=== PATIENT | male | born 1975 | race Caucasian/White ===

== ENCOUNTER 2019-06-13 21:07 | Observation (INO) | payer BC, MEDICAID, OTHER ==
[2019-06-13 21:52] LABS: CHLORIDE,CL 103 mmol/L (98-107); SODIUM,NA 140 mmol/L (136-145)
[2019-06-13] MEDS ORDERED: Diazepam 5 MG Tab PO ONE (21:53)
[2019-06-13] MEDS ORDERED: Ketorolac 30 MG/ML SDV IVPUSH ONE (21:54)
[2019-06-13] MEDS ORDERED: Morphine 2 MG/ML Syringe IVPUSH ONE (21:54)
[2019-06-13] MEDS ORDERED: Ondansetron 4 MG/2 ML SDV IVPUSH ONE (21:54)
--- NOTE | 2019-06-13 21:59 | EDM.PDOC ---
ED HPI GENERAL MEDICAL PROBLEM - General Chief Complaint: Back Pain or Injury Stated Complaint: flank, abdominal pain Time Seen by Provider: 06/13/19 21:43 Source of Information: Reports: Patient History Limitations: Reports: No Limitations - History of Present Illness INITIAL COMMENTS - FREE TEXT/NARRATIVE: Patient comes to ER with acute back pain/muscle spasms that started yesterday. Worsening over the last 24 hours. Was performing "heavy wrenching" on tractor yesterday and feels that may have triggered this pain. Has had pain in same area (left side/under scapula and mid back, radiating around to front of upper abdomen) in past but it was located a little higher than this episode. Has history of chronic back pain/intermittent leg numbness that has been worked up in past by other providers. No new numbness/arm weakness. - Related Data Allergies Allergy/AdvReac Type Severity Reaction Status Date / Time No Known Allergies Allergy Verified 06/13/19 21:08 Home Meds: Home Meds Albuterol [Ventolin HFA] 0 puff INH Q4H PRN 06/13/19 [History] Past Medical History Respiratory History: Reports: COPD Musculoskeletal History: Reports: Back Pain, Chronic Neurological History: Reports: Neuropathy, Peripheral Social & Family History - Family History Family Medical History: Noncontributory - Tobacco Use Smoking Status *Q: Current Every Day Smoker Years of Tobacco use: 28 Packs/Tins Daily: 0.5 Second Hand Smoke Exposure: Yes - Caffeine Use Caffeine Use: Reports: Coffee, Soda Other Caffeine Use: Mt Dew Caffeine Use Comment: 2L day - Alcohol Use Days Per Week of Alcohol Use: 0 - Recreational Drug Use Recreational Drug Use: No ED ROS GENERAL - Review of Systems Review Of Systems: See Below Constitutional: Reports: No Symptoms HEENT: Reports: No Symptoms Respiratory: Reports: No Symptoms. Denies: Pleuritic Chest Pain Cardiovascular: Denies: Chest Pain, Dyspnea on Exertion, Lightheadedness, Palpitations GI/Abdominal: Reports: Other (back pain does wrap around to left upper abdomen) . Denies: Constipation, Diarrhea, Nausea, Vomiting : Reports: No Symptoms Musculoskeletal: Reports: Back Pain. Denies: Arm Pain, Leg Pain Skin: Reports: No Symptoms Neurological: Reports: No Symptoms (no acute changes) Psychiatric: Reports: No Symptoms Hematologic/Lymphatic: Reports: No Symptoms ED EXAM, GENERAL - Physical Exam Exam: See Below Exam Limited By: Physical Impairment (severe back spasms with movement/ palpation of left mid back.) General Appearance: Alert, WD/WN, Severe Distress (during spasms) Eye Exam: Bilateral Eye: EOMI, PERRL Ears: Hearing Grossly Normal Nose: No: Nasal Deformity, Nasal Swelling, Nasal Drainage Throat/Mouth: Normal Lips, Normal Voice, No Airway Compromise Head: Atraumatic, Normocephalic Neck: Supple, Non-Tender, Full Range of Motion Respiratory/Chest: No Respiratory Distress, Lungs Clear, Normal Breath Sounds, No Accessory Muscle Use, Other (posterior chest under scapula tender with palpation, tender along serratus muscle) Cardiovascular: No Edema, No Murmur, Tachycardia GI/Abdominal: Normal Bowel Sounds, Soft, Non-Tender, No Distention (Male) Exam: Deferred Rectal (Males) Exam: Deferred Back Exam: Paraspinal Tenderness (left back under scapula) Extremities: Normal Capillary Refill, Other (no gross assymetry noted. ) Neurological: Alert, Oriented, Normal Cognition, Other (appears to have equal strength bilaterally upper/lower limbs) Psychiatric: Anxious Skin Exam: Warm, Dry, Intact, Normal Color Course - Vital Signs Last Recorded V/S: Last Vital Signs Temp 36.8 C 06/13/19 21:11 Pulse 107 H 06/13/19 21:11 Resp 20 06/13/19 21:11 BP 131/87 06/13/19 21:11 Pulse Ox 96 06/13/19 21:11 - Orders/Labs/Meds Orders: Active Orders 24 hr Category Date Time Status MAGNESIUM [CHEM] Stat Lab 06/13/19 21:30 Received Ketorolac [Toradol] Med 06/13/19 21:54 Once 30 mg IVPUSH ONETIME ONE Morphine Med 06/13/19 21:54 Once 2 mg IVPUSH ONETIME ONE Ondansetron [Zofran] Med 06/13/19 21:54 Once 4 mg IVPUSH ONETIME ONE Sodium Chloride 0.9% [Saline Flush] Med 06/13/19 21:53 Ordered 10 ml FLUSH ASDIRECTED PRN Saline Lock Insert [OM.PC] Routine Oth 06/13/19 21:53 Ordered Medication Orders Sodium Chloride (Saline Flush) 10 ml FLUSH ASDIRECTED PRN PRN Reason: Keep Vein Open Labs: Laboratory Tests 06/13/19 06/13/19 06/13/19 Range/Units 21:30 21:30 21:30 WBC 10.0 (4.0-10.2) K/uL RBC 5.21 (4.33-5.41) M/uL Hgb 15.7 (13.1-16.8) g/dL Hct 45.6 (39.0-49.0) % MCV 87.5 (84.0-98.0) fL MCH 30.1 (28.2-33.3) pg MCHC 34.4 (31.7-36.0) g/dL RDW 13.0 (11.2-14.1) % Plt Count 279 (150-350) K/uL Neut % (Auto) 51.2 (45.0-80.0) % Lymph % (Auto) 36.2 (10.0-50.0) % [place] % (Auto) 8.3 (2.0-14.0) % Eos % (Auto) 3.9 (0.0-5.0) % Baso % (Auto) 0.4 (0.0-2.0) % Neut # (Auto) 5.14 (1.40-7.00) K/uL Lymph # (Auto) 3.63 H (0.50-3.50) K/uL [place] # (Auto) 0.83 (0.00-1.00) K/uL Eos # (Auto) 0.39 (0.00-0.50) K/uL Baso # (Auto) 0.04 (0.00-0.20) K/uL Sodium 140 (136-145) mmol/L Potassium 4.1 (3.5-5.1) mmol/L Chloride 103 (98-107) mmol/L Carbon Dioxide 27.2 (21.0-32.0) mmol/L BUN 15 (7-18) mg/dL Creatinine 0.93 (0.51-1.17) mg/dL Est Cr Clr Drug Dosing 102.48 mL/min Estimated GFR (MDRD) > 60 mL/min Glucose 127 H (74-106) mg/dL Calcium 9.2 (8.5-10.1) mg/dL Total Bilirubin 0.6 (0.2-1.0) mg/dL AST 24 (15-37) U/L ALT 33 (12-78) U/L Alkaline Phosphatase 81 (46-116) IU/L Total Protein 8.0 (6.4-8.2) g/dL Albumin 4.3 (3.4-5.0) g/dL Specimen Type Urinvoid Urine Color Yellow Urine Appearance Clear Urine pH 5.5 (5.0-9.0) Ur Specific [place] >= 1.030 (1.005-1.030) Urine Protein Negative (NEGATIVE) mg/dL Urine Glucose (UA) Negative (NEGATIVE) mg/dL Urine Ketones Trace H (NEGATIVE) mg/dL Urine Occult Blood Negative (NEGATIVE) Urine Nitrite Negative (NEGATIVE) Urine Bilirubin Negative (NEGATIVE) Urine Urobilinogen 0.2 (0.2-1.0) E.U./dL Ur Leukocyte Esterase Negative (NEGATIVE) Urine RBC Not seen /HPF Urine WBC 0-5 /HPF Urine Bacteria Rare (NONE TO FEW) /HPF Urine Mucus Rare H (NEGATIVE) /LPF Meds: Medications Generic Name Dose Route Start Last Admin Trade Name Freq PRN Reason Stop Dose Admin Sodium Chloride 10 ml 06/13/19 21:53 Saline Flush FLUSH ASDIRECTED PRN Keep Vein Open Discontinued Medications Generic Name Dose Route Start Last Admin Trade Name Freq PRN Reason Stop Dose Admin Diazepam 5 mg 06/13/19 21:53 Valium. PO 06/13/19 21:54 ONETIME ONE - Re-Assessments/Exams Free Text/Narrative Re-Assessment/Exam: 06/13/19 22:02 CBC/Chem/Mg/UA requested. Overall unremarkable labs. Does not appear to be consistent with kidney stone at this time. Does appear to be musculo/skeletal in nature given reproducibility with light palpation and spasm-like nature. Patient does have history of long standing back issues. Unable to obtain plain films of back at this time due to patient's symptoms. Plan is to admit observation for pain and spasm control and assistance with ADLs. Departure - Departure Time of Disposition: 22:05 Disposition: Refer to Observation Condition: Good Clinical Impression: Spasm of thoracic back muscle - Discharge Information *PRESCRIPTION DRUG MONITORING PROGRAM REVIEWED*: Not Applicable *COPY OF PRESCRIPTION DRUG MONITORING REPORT IN PATIENT BHARGAV: Not Applicable Sepsis Event Note - Evaluation Sepsis Screening Result: No Definite Risk - Focused Exam Vital Signs: Vital Signs Temp Pulse Resp BP Pulse Ox 06/13/19 21:11 36.8 C 107 H 20 131/87 96 Date Exam was Performed: 06/13/19 Time Exam was Performed: 21:54 - Problem List & Annotations (1) Spasm of thoracic back muscle SNOMED Code(s): 329801692353395 Code(s): M62.830 - MUSCLE SPASM OF BACK Status: Acute Priority: High Current Visit: Yes Onset Date: 06/12/19 Annotation/Comment:: Acute spasm of back/lower thoracic area with radiation around serratus anterior muscle and left upper abdomen. Will treat pain and spasms. Assistance with ADLs as needed. Consider MRI study when it is available on Saturday depending on patient' s clinic course over the next 24-48 hours. (2) Chronic back pain SNOMED Code(s): 923394796 Code(s): M54.9 - DORSALGIA, UNSPECIFIED; G89.29 - OTHER CHRONIC PAIN Status : Chronic Priority: Low Current Visit: No Annotation/Comment:: stable per patient Qualifiers: Back pain location: low back pain Back pain laterality: unspecified Sciatica presence: unspecified whether sciatica present Qualified Code(s): M54.5 - Low back pain; G89.29 - Other chronic pain (3) COPD (chronic obstructive pulmonary disease) SNOMED Code(s): 30618745 Code(s): J44.9 - CHRONIC OBSTRUCTIVE PULMONARY DISEASE, UNSPECIFIED Status : Chronic Priority: Low Current Visit: No Annotation/Comment:: mild asthma per patient with PRN Albuterol inhaler. Is smoker. Qualifiers: COPD type: unspecified COPD Qualified Code(s): J44.9 - Chronic obstructive pulmonary disease, unspecified - Problem List Review Problem List Initiated/Reviewed/Updated: Yes - My Orders Last 24 Hours: My Active Orders 06/13/19 21:30 MAGNESIUM [CHEM] Stat 06/13/19 21:53 Sodium Chloride 0.9% [Saline Flush] 10 ml FLUSH ASDIRECTED PRN Saline Lock Insert [OM.PC] Routine 06/13/19 21:54 Ketorolac [Toradol] 30 mg IVPUSH ONETIME ONE Morphine 2 mg IVPUSH ONETIME ONE Ondansetron [Zofran] 4 mg IVPUSH ONETIME ONE - Assessment/Plan Admission H&P: Please use this note as an admission H&P Last 24 Hours: My Active Orders 06/13/19 21:30 MAGNESIUM [CHEM] Stat 06/13/19 21:53 Sodium Chloride 0.9% [Saline Flush] 10 ml FLUSH ASDIRECTED PRN Saline Lock Insert [OM.PC] Routine 06/13/19 21:54 Ketorolac [Toradol] 30 mg IVPUSH ONETIME ONE Morphine 2 mg IVPUSH ONETIME ONE Ondansetron [Zofran] 4 mg IVPUSH ONETIME ONE Assessment:: as above Plan: as above
[2019-06-13] MEDS ORDERED: Ondansetron 4 MG/2 ML SDV IVPUSH PRN (22:10)
[2019-06-13] MEDS ORDERED: Morphine 2 MG/ML Syringe IVPUSH PRN (22:10)
[2019-06-13] MEDS ORDERED: Albuterol 0.083% 2.5 MG/3 ML Neb Soln NEB PRN (22:10)
[2019-06-13] MEDS ORDERED: methylPREDNISolone Sodium Succinate 125 MG/2 ML SDV IVPUSH ONE (22:15)
[2019-06-13] MEDS: Sodium Chloride 0.9% 10 ML Syringe FLUSH PRN ×2 (22:25→23:03)
[2019-06-13] MEDS: Sodium Chloride 0.9% 1,000 ML IV SCH (23:02)
[2019-06-14] MEDS ORDERED: Diazepam 5 MG Tab PO ONE (08:00)
[2019-06-14] MEDS: Sodium Chloride 0.9% 1,000 ML IV SCH (08:05)
[2019-06-14] MEDS: Ketorolac 30 MG/ML SDV IVPUSH PRN (08:50)
[2019-06-14] MEDS: Nicotine 21 MG/24 Hr Patch TRDERM SCH (10:02)
--- NOTE | 2019-06-14 11:11 | PCM.PN ---
- General Info Date of Service: 06/14/19 Admission Dx/Problem (Free Text): Acute left sided back pain/spasms that started while patient was working on tractor at work. Subjective Update: Pain severity/spasms still present but overall severity has improved on current medical therapy. Still needs assistance with getting up and out of bed. Unable to perform ADLs independently. Functional Status: Reports: Tolerating Diet, Ambulating (with assistance). Denies: New Symptoms Pain Score: 3 - Review of Systems General: Reports: No Symptoms HEENT: Reports: No Symptoms Pulmonary: Denies: Shortness of Breath, Pleuritic Chest Pain, Cough, Sputum Cardiovascular: Reports: Chest Pain (left sided, wraps from back around to front.). Denies: Palpitations, Dyspnea on Exertion, Orthopnea, Lightheadedness Gastrointestinal: Reports: Abdominal Pain (Pain extends to upper left side abdomen when he experiences spasms). Denies: Constipation, Diarrhea, Nausea, Vomiting Genitourinary: Reports: No Symptoms Musculoskeletal: Reports: Back Pain. Denies: Neck Pain, Arm Pain, Leg Pain Skin: Reports: No Symptoms Neurological: Denies: Confusion, Dizziness, Numbness, Paresthesia, Weakness Psychiatric: Reports: No Symptoms - Patient Data Vitals - Most Recent: Last Vital Signs Temp 36.9 C 06/14/19 10:52 Pulse 98 06/14/19 10:52 Resp 18 06/14/19 10:52 BP 113/64 06/14/19 10:52 Pulse Ox 93 L 06/14/19 10:52 Weight - Most Recent: 77.111 kg I&O - Last 24 Hours: Intake & Output 06/13/19 06/14/19 06/14/19 22:59 06:59 14:59 Intake Total 850 Balance 850 Lab Results Last 24 Hours: Laboratory Results - last 24 hr 06/13/19 06/13/19 06/13/19 Range/Units 21:30 21:30 21:30 WBC 10.0 (4.0-10.2) K/uL RBC 5.21 (4.33-5.41) M/uL Hgb 15.7 (13.1-16.8) g/dL Hct 45.6 (39.0-49.0) % MCV 87.5 (84.0-98.0) fL MCH 30.1 (28.2-33.3) pg MCHC 34.4 (31.7-36.0) g/dL RDW 13.0 (11.2-14.1) % Plt Count 279 (150-350) K/uL Neut % (Auto) 51.2 (45.0-80.0) % Lymph % (Auto) 36.2 (10.0-50.0) % [place] % (Auto) 8.3 (2.0-14.0) % Eos % (Auto) 3.9 (0.0-5.0) % Baso % (Auto) 0.4 (0.0-2.0) % Neut # (Auto) 5.14 (1.40-7.00) K/uL Lymph # (Auto) 3.63 H (0.50-3.50) K/uL [place] # (Auto) 0.83 (0.00-1.00) K/uL Eos # (Auto) 0.39 (0.00-0.50) K/uL Baso # (Auto) 0.04 (0.00-0.20) K/uL Sodium 140 (136-145) mmol/L Potassium 4.1 (3.5-5.1) mmol/L Chloride 103 (98-107) mmol/L Carbon Dioxide 27.2 (21.0-32.0) mmol/L BUN 15 (7-18) mg/dL Creatinine 0.93 (0.51-1.17) mg/dL Est Cr Clr Drug Dosing 102.48 mL/min Estimated GFR (MDRD) > 60 mL/min Glucose 127 H (74-106) mg/dL Calcium 9.2 (8.5-10.1) mg/dL Magnesium (1.8-2.4) mg/dL Total Bilirubin 0.6 (0.2-1.0) mg/dL AST 24 (15-37) U/L ALT 33 (12-78) U/L Alkaline Phosphatase 81 (46-116) IU/L Total Protein 8.0 (6.4-8.2) g/dL Albumin 4.3 (3.4-5.0) g/dL Specimen Type Urinvoid Urine Color Yellow Urine Appearance Clear Urine pH 5.5 (5.0-9.0) Ur Specific [place] >= 1.030 (1.005-1.030) Urine Protein Negative (NEGATIVE) mg/dL Urine Glucose (UA) Negative (NEGATIVE) mg/dL Urine Ketones Trace H (NEGATIVE) mg/dL Urine Occult Blood Negative (NEGATIVE) Urine Nitrite Negative (NEGATIVE) Urine Bilirubin Negative (NEGATIVE) Urine Urobilinogen 0.2 (0.2-1.0) E.U./dL Ur Leukocyte Esterase Negative (NEGATIVE) Urine RBC Not seen /HPF Urine WBC 0-5 /HPF Urine Bacteria Rare (NONE TO FEW) /HPF Urine Mucus Rare H (NEGATIVE) /LPF 06/13/19 Range/Units 21:30 WBC (4.0-10.2) K/uL RBC (4.33-5.41) M/uL Hgb (13.1-16.8) g/dL Hct (39.0-49.0) % MCV (84.0-98.0) fL MCH (28.2-33.3) pg MCHC (31.7-36.0) g/dL RDW (11.2-14.1) % Plt Count (150-350) K/uL Neut % (Auto) (45.0-80.0) % Lymph % (Auto) (10.0-50.0) % [place] % (Auto) (2.0-14.0) % Eos % (Auto) (0.0-5.0) % Baso % (Auto) (0.0-2.0) % Neut # (Auto) (1.40-7.00) K/uL Lymph # (Auto) (0.50-3.50) K/uL [place] # (Auto) (0.00-1.00) K/uL Eos # (Auto) (0.00-0.50) K/uL Baso # (Auto) (0.00-0.20) K/uL Sodium (136-145) mmol/L Potassium (3.5-5.1) mmol/L Chloride (98-107) mmol/L Carbon Dioxide (21.0-32.0) mmol/L BUN (7-18) mg/dL Creatinine (0.51-1.17) mg/dL Est Cr Clr Drug Dosing mL/min Estimated GFR (MDRD) mL/min Glucose (74-106) mg/dL Calcium (8.5-10.1) mg/dL Magnesium 1.9 (1.8-2.4) mg/dL Total Bilirubin (0.2-1.0) mg/dL AST (15-37) U/L ALT (12-78) U/L Alkaline Phosphatase (46-116) IU/L Total Protein (6.4-8.2) g/dL Albumin (3.4-5.0) g/dL Specimen Type Urine Color Urine Appearance Urine pH (5.0-9.0) Ur Specific [place] (1.005-1.030) Urine Protein (NEGATIVE) mg/dL Urine Glucose (UA) (NEGATIVE) mg/dL Urine Ketones (NEGATIVE) mg/dL Urine Occult Blood (NEGATIVE) Urine Nitrite (NEGATIVE) Urine Bilirubin (NEGATIVE) Urine Urobilinogen (0.2-1.0) E.U./dL Ur Leukocyte Esterase (NEGATIVE) Urine RBC /HPF Urine WBC /HPF Urine Bacteria (NONE TO FEW) /HPF Urine Mucus (NEGATIVE) /LPF Med Orders - Current: Current Medications Acetaminophen (Tylenol Extra Strength) 1,000 mg PO Q6H PRN PRN Reason: Pain Albuterol (Proventil Neb Soln) 2.5 mg NEB Q6HRRT PRN PRN Reason: Shortness Of Breath/wheezing Last Admin: 06/14/19 10:46 Dose: 2.5 mg Sodium Chloride (Normal Saline) 1,000 mls @ 125 mls/hr IV ASDIRECTED [facility] Last Admin: 06/14/19 08:05 Dose: 125 mls/hr Ketorolac Tromethamine (Toradol) 30 mg IVPUSH Q6H PRN PRN Reason: Pain (moderate 4-6) Last Admin: 06/14/19 08:50 Dose: 30 mg Lidocaine (Aspercreme 4%) 1 each TOP DAILY [facility] Morphine Sulfate (Morphine) 2 mg IVPUSH Q1H PRN PRN Reason: Pain (severe 7-10) Nicotine (Habitrol) 21 mg TRDERM DAILY [facility] Last Admin: 06/14/19 10:02 Dose: 21 mg Ondansetron HCl (Zofran) 4 mg IVPUSH Q6H PRN PRN Reason: Nausea/Vomiting Sodium Chloride (Saline Flush) 10 ml FLUSH ASDIRECTED PRN PRN Reason: Keep Vein Open Last Admin: 06/13/19 23:03 Dose: 10 ml Discontinued Medications Diazepam (Valium.) 5 mg PO ONETIME ONE Stop: 06/13/19 21:54 Last Admin: 06/13/19 22:00 Dose: 5 mg Diazepam (Valium.) 5 mg PO ONETIME ONE Stop: 06/14/19 08:01 Last Admin: 06/14/19 08:05 Dose: 5 mg Magnesium Sulfate/Dextrose 1 (gm/ Premix) 100 mls @ 100 mls/hr IV ONETIME ONE Stop: 06/13/19 23:15 Last Admin: 06/13/19 23:02 Dose: 100 mls/hr Ketorolac Tromethamine (Toradol) 30 mg IVPUSH ONETIME ONE Stop: 06/13/19 21:55 Last Admin: 06/13/19 22:12 Dose: 30 mg Methylprednisolone Sodium Succinate (Solu-Medrol) 125 mg IVPUSH ONETIME ONE Stop: 06/13/19 22:16 Last Admin: 06/13/19 23:02 Dose: 125 mg Morphine Sulfate (Morphine) 2 mg IVPUSH ONETIME ONE Stop: 06/13/19 21:55 Last Admin: 06/13/19 22:08 Dose: 2 mg Ondansetron HCl (Zofran) 4 mg IVPUSH ONETIME ONE Stop: 06/13/19 21:55 Last Admin: 06/13/19 22:26 Dose: 4 mg - Exam Quality Assessment: DVT Prophylaxis General: Alert, Oriented, Cooperative, Moderate Distress (when spasms triggered) HEENT: Pupils Equal, Pupils Reactive, EOMI, Mucous Membr. Moist/[place] Neck: Supple Lungs: Clear to Auscultation, Normal Respiratory Effort Cardiovascular: Regular Rate, Regular Rhythm GI/Abdominal Exam: Normal Bowel Sounds, Soft, Non-Tender, No Distention (Male) Exam: Deferred Back Exam: Other (very tender with even lightest touch mid left back/serratus muscle distribution/around side and left lower anterior chest. Reproduces pain complaint. No spinal tenderness with palpation) Extremities: Normal Capillary Refill, Limited Range of Motion (left arm/ shoulder as it exacerbates pain complaint) Peripheral Pulses: 2+: Radial (L), Radial (R) Skin: Warm, Dry. No: Rash Neurological: No New Focal Deficit Psy/Mental Status: Alert, Normal Affect, Normal Mood Sepsis Event Note - Evaluation Sepsis Screening Result: No Definite Risk - Focused Exam Vital Signs: Vital Signs Temp Temp Pulse Resp BP Pulse Ox 06/14/19 10:52 36.9 C 98 18 113/64 93 L 06/14/19 08:00 36.7 C 88 14 116/66 98 Date Exam was Performed: 06/14/19 Time Exam was Performed: 11:05 - Problem List & Annotations (1) Spasm of thoracic back muscle SNOMED Code(s): 416360597824416 Code(s): M62.830 - MUSCLE SPASM OF BACK Status: Acute Priority: High Current Visit: Yes Onset Date: 06/12/19 Annotation/Comment:: Acute spasm of back/lower thoracic area with radiation around serratus anterior muscle and left upper abdomen. 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 Will treat pain and spasms. Assistance with ADLs as needed. Consider MRI study when it is available on Saturday depending on patient's clinic course over the next 24-48 hours. (2) Chronic back pain SNOMED Code(s): 213424789 Code(s): M54.9 - DORSALGIA, UNSPECIFIED; G89.29 - OTHER CHRONIC PAIN Status : Chronic Priority: Low Current Visit: No Qualifiers: Back pain location: low back pain Back pain laterality: unspecified Sciatica presence: unspecified whether sciatica present Qualified Code(s): M54.5 - Low back pain; G89.29 - Other chronic pain Annotation/Comment:: stable per patient (3) COPD (chronic obstructive pulmonary disease) SNOMED Code(s): 93610239 Code(s): J44.9 - CHRONIC OBSTRUCTIVE PULMONARY DISEASE, UNSPECIFIED Status : Chronic Priority: Low Current Visit: No Qualifiers: COPD type: unspecified COPD Qualified Code(s): J44.9 - Chronic obstructive pulmonary disease, unspecified Annotation/Comment:: mild asthma per patient with PRN Albuterol inhaler. Is smoker. - Problem List Review Problem List Initiated/Reviewed/Updated: Yes - My Orders Last 24 Hours: My Active Orders 06/13/19 21:53 Sodium Chloride 0.9% [Saline Flush] 10 ml FLUSH ASDIRECTED PRN Saline Lock Insert [OM.PC] Routine 06/13/19 22:10 May Shower [RC] ASDIRECTED Up With Assistance [RC] ASDIRECTED Albuterol [Proventil Neb Soln] 2.5 mg NEB Q6HRRT PRN Ketorolac [Toradol] 30 mg IVPUSH Q6H PRN Morphine 2 mg IVPUSH Q1H PRN Ondansetron [Zofran] 4 mg IVPUSH Q6H PRN Resuscitation Status Routine 06/13/19 22:11 Patient Status [ADT] Routine Oxygen Therapy [RC] .PRN VTE/DVT Education [RC] PER UNIT ROUTINE Vital Signs [RC] Q6HR 06/13/19 22:12 Pulse Oximetry [RC] .PRN 06/13/19 22:13 RT Aerosol Therapy [RC] .PRN 06/13/19 22:15 Acetaminophen [Tylenol Extra Strength] 1,000 mg PO Q6H PRN 06/13/19 22:30 Sodium Chloride 0.9% [Normal Saline] 1,000 ml IV ASDIRECTED 06/14/19 10:00 Nicotine [Habitrol] 21 mg TRDERM DAILY 06/14/19 10:50 Consult to Occupational Therapy [OT Evaluation and Treatment] [CONS] Routine PT Evaluation and Treatment [CONS] Routine 06/14/19 11:15 Lidocaine 4% [Aspercreme 4%] 1 each TOP DAILY 06/14/19 Breakfast Regular Diet [DIET] - Assessment Assessment:: as above. Improvement of severity of spasms on current medications. Still unable to perform ADLs independently. - Plan Plan:: Continue current treatment plan. Will have PT and OT evaluate patient in AM. Consider MRI study tomorrow if appointment slot available to evaluate thoracic spine. First report of injury will be filled out given that symptoms started at work when patient performing heavy labor while working on a tractor. Consider discharge home tomorrow on muscle relaxants/pain medications if additional improvement is noted.
[2019-06-14] MEDS: Magnesium Oxide 400 MG Tab PO SCH ×2 (11:29→17:14)
[2019-06-14] MEDS: Enoxaparin 40 MG/0.4 ML Syringe SUBCUT SCH (11:29)
[2019-06-14] MEDS: Lidocaine 4% 1 each Patch TOP SCH (11:29)
[2019-06-14] MEDS: Cyclobenzaprine 10 MG Tab PO SCH ×2 (13:48→17:14)
[2019-06-14] MEDS: Acetaminophen 500 MG Tab PO PRN (19:56)
[2019-06-15] MEDS: Acetaminophen 500 MG Tab PO PRN (04:01)
[2019-06-15] MEDS: Cyclobenzaprine 10 MG Tab PO SCH ×2 (07:31→11:46)
[2019-06-15] MEDS: Magnesium Oxide 400 MG Tab PO SCH (07:31)
[2019-06-15] MEDS: Ketorolac 30 MG/ML SDV IVPUSH PRN (07:32)
[2019-06-15] MEDS: Sodium Chloride 0.9% 10 ML Syringe FLUSH PRN (07:33)
[2019-06-15] MEDS: Nicotine 21 MG/24 Hr Patch TRDERM SCH (07:41)
[2019-06-15] MEDS: Lidocaine 4% 1 each Patch TOP SCH (07:41)
[2019-06-15] MEDS: Enoxaparin 40 MG/0.4 ML Syringe SUBCUT SCH (11:46)
--- NOTE | 2019-06-15 12:31 | PCM.DCSUM1 ---
Discharge Summary - Hospital Course Brief History: Patient admitted for pain control due to developing sudden new severe left sided back/chest pain, spasmodic in pattern. Diagnosis: Stroke: No - Discharge Data Discharge Date: 06/15/19 Discharge Disposition: Home, Self-Care 01 Condition: Good - Referral to Home Health Primary Care Physician: PCP None - Discharge Diagnosis/Problem(s) (1) Spasm of thoracic back muscle SNOMED Code(s): 444394970216684 ICD Code: M62.830 - MUSCLE SPASM OF BACK Status: Acute Priority: High Current Visit: Yes Onset Date: 06/12/19 Problem Details: Acute spasm of back /lower thoracic area with radiation around serratus anterior muscle and left upper abdomen. 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 Improved when given Valium to help with spasma and pain medication. Required assistance with ADLs but today was able to work with PT and move more independently. No history of back issues involving mid back. Does have history of low back pain. MRI of thoracic spine performed today to evaluate for degeneration/disc injury that could be linked with presenting complaint. Results pending. (2) Chronic back pain SNOMED Code(s): 478732026 ICD Code: M54.9 - DORSALGIA, UNSPECIFIED; G89.29 - OTHER CHRONIC PAIN Status: Chronic Priority: Low Current Visit: No Problem Details: stable per patient. Has had extensive workup in past for this including imaging studies per self report. Qualifiers: Back pain location: low back pain Back pain laterality: unspecified Sciatica presence: unspecified whether sciatica present Qualified Code(s): M54.5 - Low back pain; G89.29 - Other chronic pain (3) COPD (chronic obstructive pulmonary disease) SNOMED Code(s): 38393082 ICD Code: J44.9 - CHRONIC OBSTRUCTIVE PULMONARY DISEASE, UNSPECIFIED Status : Chronic Priority: Low Current Visit: No Problem Details: mild asthma per patient with PRN Albuterol inhaler. Is smoker. To follow up closely with primary provider and get restarted on inhaler to help control baseline symptoms. Qualifiers: COPD type: unspecified COPD Qualified Code(s): J44.9 - Chronic obstructive pulmonary disease, unspecified - Patient Summary/Data Consults: Consultations 06/14/19 10:50 Consult to Occupational Therapy [OT Evaluation and Treatment] [CONS] Routine PT Evaluation and Treatment [CONS] Routine Hospital Course: Initially patient had severe intermittent spasms of left sided pain in distribution from lower 1/2 thoracic area near spine, wrapping around to left anterior lower chest/upper abdomen. Triggered by movement and palpation of muscles along involved area. No focal spinal tenderness. Initially received Valium/pain meds in ER. Was switched over to Flexeril yesterday on PRN schedule. Significant improvement noted yesterday but patient did continue to need some assistance with ADLS due to continued pain flares. He did end up declining his Flexeril/Toradol last night and had return of severe spasms this morning. These improved again after receiving Toradol and Flexeril. Labs/chest xray/Troponin unremarkable. MRI of thoracic spine performed today to rule out disc injury/other acute changes that may be contributing to patient's pain complaint. 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 Patient evaluated by PT and OT today. Advised on stretches/strategies to help with muscle pain. Will discharge patient home and continue him on Flexeril/PRN Tramadol. He can take OTC Tylenol or Aleve or Naprosyn as needed. To follow up in two days at clinic (0930 at hospital clinic). Precautions reviewed. To follow up otherwise as needed if he has sudden worsening problems. - Patient Instructions Diet: Usual Diet as Tolerated Activity: As Tolerated, No Lifting Over 10 Pounds Driving: Do Not Drive Showering/Bathing: May Shower Notify Provider of: Increased Pain Other/Special Instructions: Take it easy. Follow up Saturday at 9:30 for recheck. Also discuss getting new inhaler. Follow up otherwise as needed if symptoms worsen. - Discharge Plan *PRESCRIPTION DRUG MONITORING PROGRAM REVIEWED*: Not Applicable *COPY OF PRESCRIPTION DRUG MONITORING REPORT IN PATIENT BHARGAV: Not Applicable Prescriptions/Med Rec: Cyclobenzaprine [Flexeril] 10 mg PO TID PRN #20 tab PRN Reason: Spasms traMADol [Ultram] 50 mg PO Q6H PRN #15 tab PRN Reason: Pain Home Medications: Home Meds Albuterol [Ventolin HFA] 0 puff INH Q4H PRN 06/13/19 [History] Cyclobenzaprine [Flexeril] 10 mg PO TID PRN #20 tab 01/27/20 [Rx] traMADol [Ultram] 50 mg PO Q6H PRN #15 tab 06/15/19 [Rx] Patient Handouts: Muscle Cramps and Spasms Forms: ED Department Discharge Referrals: Polly Ramos NP [Nurse Practitioner] - - Discharge Summary/Plan Comment DC Time >30 min.: No - General Info Date of Service: 06/15/19 Admission Dx/Problem (Free Text: Acute left sided back pain/spasms that started while patient was working on tractor at work. Subjective Update: Return of spasms/pain this morning. Improved significantly after receiving Toradol and Flexeril. Currently back to a "2" rating for discomfort. No spasms at this time. Able to perform ADLs today and work with OT/PT. Functional Status: Reports: Pain Controlled, Tolerating Diet, Ambulating, Urinating. Denies: New Symptoms - Review of Systems General: Reports: No Symptoms HEENT: Reports: No Symptoms Pulmonary: Reports: No Symptoms. Denies: Shortness of Breath, Pleuritic Chest Pain, Cough, Sputum, Hemoptysis, Wheezing Cardiovascular: Reports: Other (left sided chest pain/back pain lower thoracic distribution when spasms present) Gastrointestinal: Reports: Abdominal Pain (pain sometimes has wrapped around to left upper abdomen. Did on two occasions have sharp pain also happen right side of chest/abdomen. ). Denies: Constipation, Decreased Appetite, Diarrhea, Difficulty Swallowing, Hematochezia, Melena Genitourinary: Reports: No Symptoms Musculoskeletal: Reports: Back Pain (left chest as noted above. Has chronic low back pain history. Right L-S area irritated this morning. ). Denies: Arm Pain, Leg Pain Skin: Reports: No Symptoms Neurological: Reports: No Symptoms. Denies: Numbness, Paresthesia, Tingling Psychiatric: Reports: No Symptoms - Patient Data Vitals - Most Recent: Last Vital Signs Temp 36.8 C 06/15/19 08:00 Pulse 91 06/15/19 08:00 Resp 16 06/15/19 08:00 BP 115/67 06/15/19 08:00 Pulse Ox 93 L 06/15/19 08:00 Weight - Most Recent: 77.111 kg I&O - Last 24 hours: Intake & Output 06/14/19 06/15/19 06/15/19 22:59 06:59 14:59 Intake Total 2339 360 Balance 2339 360 Lab Results - Last 24 hrs: Laboratory Results - last 24 hr 06/14/19 Range/Units 15:40 D-Dimer, Quantitative < 100 (0-400) ng/mL Med Orders - Current: Current Medications Acetaminophen (Tylenol Extra Strength) 1,000 mg PO Q6H PRN PRN Reason: Pain Last Admin: 06/15/19 04:01 Dose: 1,000 mg Albuterol (Proventil Neb Soln) 2.5 mg NEB Q6HRRT PRN PRN Reason: Shortness Of Breath/wheezing Last Admin: 06/14/19 10:46 Dose: 2.5 mg Cyclobenzaprine HCl (Flexeril) 10 mg PO TID [facility] Last Admin: 06/15/19 11:46 Dose: 10 mg Enoxaparin Sodium (Lovenox) 40 mg SUBCUT Q24H [facility] Last Admin: 06/15/19 11:46 Dose: 40 mg Ketorolac Tromethamine (Toradol) 30 mg IVPUSH Q6H PRN PRN Reason: Pain (moderate 4-6) Last Admin: 06/15/19 07:32 Dose: 30 mg Lidocaine (Aspercreme 4%) 1 each TOP DAILY [facility] Last Admin: 06/15/19 07:41 Dose: 1 each Magnesium Oxide (Magnesium Oxide) 400 mg PO BID [facility] Last Admin: 06/15/19 07:31 Dose: 400 mg Morphine Sulfate (Morphine) 2 mg IVPUSH Q1H PRN PRN Reason: Pain (severe 7-10) Nicotine (Habitrol) 21 mg TRDERM DAILY [facility] Last Admin: 06/15/19 07:41 Dose: 21 mg Ondansetron HCl (Zofran) 4 mg IVPUSH Q6H PRN PRN Reason: Nausea/Vomiting Sodium Chloride (Saline Flush) 10 ml FLUSH ASDIRECTED PRN PRN Reason: Keep Vein Open Last Admin: 06/15/19 07:33 Dose: 10 ml Discontinued Medications Diazepam (Valium.) 5 mg PO ONETIME ONE Stop: 06/13/19 21:54 Last Admin: 06/13/19 22:00 Dose: 5 mg Diazepam (Valium.) 5 mg PO ONETIME ONE Stop: 06/14/19 08:01 Last Admin: 01/26/20 08:05 Dose: 5 mg Magnesium Sulfate/Dextrose 1 (gm/ Premix) 100 mls @ 100 mls/hr IV ONETIME ONE Stop: 06/13/19 23:15 Last Admin: 06/13/19 23:02 Dose: 100 mls/hr Sodium Chloride (Normal Saline) 1,000 mls @ 125 mls/hr IV ASDIRECTED UMAIR Last Admin: 06/14/19 08:05 Dose: 125 mls/hr Ketorolac Tromethamine (Toradol) 30 mg IVPUSH ONETIME ONE Stop: 06/13/19 21:55 Last Admin: 06/13/19 22:12 Dose: 30 mg Methylprednisolone Sodium Succinate (Solu-Medrol) 125 mg IVPUSH ONETIME ONE Stop: 06/13/19 22:16 Last Admin: 06/13/19 23:02 Dose: 125 mg Morphine Sulfate (Morphine) 2 mg IVPUSH ONETIME ONE Stop: 06/13/19 21:55 Last Admin: 06/13/19 22:08 Dose: 2 mg Ondansetron HCl (Zofran) 4 mg IVPUSH ONETIME ONE Stop: 06/13/19 21:55 Last Admin: 06/13/19 22:26 Dose: 4 mg - Exam General: Reports: Alert, Oriented, Cooperative, No Acute Distress HEENT: Reports: Pupils Equal, Pupils Reactive, EOMI, Mucous Membr. Moist/[place] Neck: Reports: Supple Lungs: Reports: Normal Respiratory Effort, Wheezing (single wheeze noted left chest). Denies: Decreased Breath Sounds, Crackles, Rales, Rhonchi, Stridor Cardiovascular: Reports: Regular Rate, Regular Rhythm GI/Abdominal Exam: Normal Bowel Sounds, Soft, Non-Tender, No Distention (Male) Exam: Deferred Rectal (Males) Exam: Deferred Back Exam: Reports: Decreased Range of Motion (movement triggers some discomfort in area involved with spasm/pain. Moves somewhat slowly when changing positions. ), Other (mild tenderness with palpation left sided soft tissue lower 1/2 thoracic area.). Denies: CVA Tenderness (L), CVA Tenderness (R ), Vertebral Tenderness Extremities: Non-Tender, Normal Capillary Refill Skin: Reports: Warm, Dry, Intact Neurological: Reports: No New Focal Deficit Psy/Mental Status: Reports: Alert, Normal Affect, Normal Mood
== END 2019-06-15 13:40 | disposition home or self-care (01) ==
LOC: LL.ED 21:07 → UNDOADMOB 22:06 → LL.MS 22:06 → UNDODISOB 06-15 13:40
PROVIDERS: ADMIT Emergency Medicine; ATTEND Emergency Medicine
DX: M62.830 Muscle spasm of back (principal); M54.9 Dorsalgia, unspecified; G89.29 Other chronic pain; J44.9 Chronic obstructive pulmonary disease, unspecified; F17.210 Nicotine dependence, cigarettes, uncomplicated
CPT/HCPCS: 36415; 71046; 72146; 80053; 81001; 83735; 85025; 85379; 94640; 96361; 96365; 96372; 96375; 96376; 97110-GP; 97161-GP; 97530-GP; 99285-25; A9270-GY; G0378; J1650; J1885; J2270; J2405; J2930; J3475; J7030; J7613-GY